=== PATIENT | female | born 1945 | race Caucasian/White ===

== ENCOUNTER 2016-12-29 12:23 | Day surgery (SDC) | payer OTHER ==
[~2016-12-29] VITALS: Ht 149.9 cm; Wt 52.7 kg
[2016-12-29 13:04] VITALS: Ht 149.9 cm; Wt 52.7 kg
[2016-12-29] MEDS ORDERED: SIMV20TA2 PO (13:11)
[2016-12-29] MEDS ORDERED: ASPI-664 PO (13:11)
[2016-12-29 13:21] VITALS: BP 117/63; PULSE 74; RESP 20
[2016-12-29] MEDS ORDERED: MIDAZOLAM 1 MG/ML 2 ML INJ ONE ×2 (14:03→14:04)
[2016-12-29] MEDS ORDERED: MEPERIDINE 50 MG INJ ONE (14:04)
[2016-12-29] MEDS ORDERED: FENTAnyl 50 MCG/ML VIAL ONE (14:04)
[2016-12-29 14:25] VITALS: BP 117/68; PULSE 80; RESP 15
--- NOTE | 2016-12-29 15:55 | GILP ---
DATE OF PROCEDURE: 12/29/2016 PREOPERATIVE DIAGNOSIS: Screening colonoscopy. POSTOPERATIVE DIAGNOSIS: Fixed sigmoid colon, otherwise normal colonoscopy, internal hemorrhoids, g rade II, noted. DESCRIPTION OF PROCEDURE: The patient was put in left lateral decubitus after obtaining informed co nsent, monitored oximetry, EKG, and blood pressure. She received 2 mg IV Versed and 50 mcg of fenta nyl. I advanced an Olympus video pediatric colonoscope all the way to cecum with some difficulty du e to fixation of the left colon. Cecum, ascending colon, transverse colon, and descending colon are otherwise normal. Fixed sigmoid colon. Rectum was normal including retroflexion. Grade II staff internist office based only al hemorrhoids noted. Upon removal of scope, the patient had no complication. Plan will be to advi her to follow up with primary MD. Repeat colonoscopy in 10 years. Dictated By: KANNAN REY/DAWNA Conf#: [id number] DID#: [id number] CC: Dominic Posada MD;*EndCC*
== END 2016-12-29 15:58 | disposition home or self-care (01) ==
LOC: GIL 12:23
PROVIDERS: ATTEND Internal Medicine
DX: Z12.11 Encounter for screening for malignant neoplasm of colon (principal); K64.1 Second degree hemorrhoids
CPT/HCPCS: 45378; J2175; J2250; J3010